=== PATIENT | female | born 1975 | race Caucasian/White ===

== ENCOUNTER 2023-06-28 15:31 | Emergency (ER) | payer OTHER ==
[~2023-06-28] VITALS: Ht 154.9 cm; Wt 59.0 kg
[2023-06-28] MEDS ORDERED: MORPHINE SULFATE 4 MG/ML SYR IM ONE (15:45)
[2023-06-28 15:48] VITALS: BP 129/94; PULSE 98; RESP 16; TEMP 98.1; O2SAT 98
[2023-06-28] MEDS ORDERED: ACET-5634 PO ×2 (16:02→20:30)
[2023-06-28 16:27] VITALS: BP 129/94; PULSE 98; RESP 16; TEMP 98.1; O2SAT 98
== END 2023-06-28 16:28 | disposition home or self-care (01) ==
LOC: MED 15:31
DX: D68.1 Hereditary factor XI deficiency (principal); Z79.899 Other long term (current) drug therapy
CPT/HCPCS: 93005; 96372; 99283; J2270